=== PATIENT | female | born 1985 | race Caucasian/White ===

== ENCOUNTER 2018-12-17 19:19 | Emergency (ER) | payer BC ==
[~2018-12-17] VITALS: Ht 157.5 cm; Wt 55.8 kg
[2018-12-17 19:25] VITALS: BP 140/84
--- NOTE | 2018-12-17 19:25 | NUR ---
TO BED # 11 AMBULATORY
--- NOTE | 2018-12-17 19:45 | NUR ---
33 YO F BIB SELF AND PRESENTS TO ED C/O 02/23 LEFT LEG PAIN THAT COMES AND GOES X 3 HOURS FROM A BUG BITE THAT OCCURED X 1 WEEK AGO. SITE IS SCABBED; PT STATES SHE HAS BEEN SCRATCHING AT IT. ERYTHEMA AND MILD SWELLING NOTED. PT DENIES FEVER, N/V/D. PT STATES SHE TOOK TYLENOL 1000MG ABOUT 1 HOUR AGO. PT ALSO STATES SHE SMOKED MARIJUANA TO ALLEVIATE PAIN. PT IS ALSO . -- PT AWAKE, ALERT, TEARFUL, CRYING FROM PAIN. ANSWERS QUESTIONS APPROPRIATELY. -- SKIN PINK, WARM, DRY. BREATHING EVEN, UNLABORED. PMH-- GAVE IN AUGUST RX-- VITAMINS
[2018-12-17] MEDS ORDERED: KETOROLAC 60 MG/2 ML VIAL IM ONE (19:50)
--- NOTE | 2018-12-17 20:00 | NUR ---
MEDICATION GIVEN ORDERED. EDUCATION PROVIDED ON RISKS/BENEFITS. PT TOLERATED WELL.
--- NOTE | 2018-12-17 21:00 | NUR ---
Patient discharged with v/s stable. Written and verbal after care instructions given and explained. Patient alert, oriented and verbalized understanding of instructions. Ambulatory with steady gait. All questions addressed prior to discharge. ID band removed. Patient advised to follow up with PMD. Rx keflex and prednisone given. Patient educated on indication of medication including possible reaction and side effects. Opportunity to ask questions provided and answered.
== END 2018-12-17 21:00 | disposition home or self-care (01) ==
LOC: MED 19:19
DX: L03.116 Cellulitis of left lower limb (principal); F12.10 Cannabis abuse, uncomplicated
CPT/HCPCS: 96372; 99283; J1885

== ENCOUNTER 2022-12-21 05:10 | Emergency (ER) | payer BC, OTHER ==
[~2022-12-21] VITALS: Ht 160 cm; Wt 54.4 kg
[2022-12-21 05:19] VITALS: BP 153/103; PULSE 85; RESP 18; TEMP 97.9; O2SAT 98
--- NOTE | 2022-12-21 05:22 | NUR ---
PT TAKEN TO BED 8
--- NOTE | 2022-12-21 05:30 | NUR ---
at the bedside
--- NOTE | 2022-12-21 05:32 | NUR ---
Dr nicolas is at the bedside
[2022-12-21] MEDS ORDERED: KETOROLAC 15 MG/ML VIAL IVP ONE (05:35)
[2022-12-21] MEDS ORDERED: ONDANSETRON 4 MG/2 ML VIAL IVP ONE (05:35)
--- NOTE | 2022-12-21 05:35 | NUR ---
blood sent the the lobby
--- NOTE | 2022-12-21 05:39 | NUR ---
pt was taken to ct
[2022-12-21 05:40] LABS: BASOPHILS # (AUTO) 0.1 K/uL (0.00-0.22); BASOPHILS % (AUTO) 0.5 % (0.0-2.0); EOSINOPHILS # (AUTO) 0.6 K/uL (0-0.4); EOSINOPHILS % (AUTO) 6.3 % (0.0-4.0); HEMATOCRIT 37.6 % (36-48); HEMOGLOBIN 12.6 g/dL (12.0-16.0); LYMPHOCYTES # (AUTO) 3.9 K/uL (2.5-16.5); LYMPHOCYTES % (AUTO) 40.4 % (20.5-51.1); MEAN CORPUSCULAR HEMOGLOBIN 31 pg (27-31); MEAN CORPUSCULAR HGB CONC 33 g/dL (33-37); MEAN CORPUSCULAR VOLUME 91.7 fL (80-94); MONOCYTES # (AUTO) 0.7 K/uL (0.8-1.0); NEUTROPHILS # (AUTO) 4.4 K/uL (1.8-7.7); NEUTROPHILS % (AUTO) 45.8 % (42.2-75.2); PLATELET COUNT (AUTO) 365 K/uL (140-450); RED CELL DISTRIBUTION WIDTH 12.7 % (11.6-13.7); WHITE BLOOD COUNT (AUTO) 9.6 K/uL (4.8-10.8)
--- NOTE | 2022-12-21 05:54 | NUR ---
PT RETURN FROM CT
[2022-12-21 06:10] LABS: ALBUMIN 3.9 g/dL (3.4-5.0); ANION GAP 14.1 (8-16); CARBON DIOXIDE 24.4 mmol/L (21-32); CREATININE 0.7 mg/dL (0.6-1.3); POTASSIUM 3.5 mmol/L (3.5-5.1); TOTAL BILIRUBIN 0.2 mg/dL (0.0-1.0)
[2022-12-21] MEDS ORDERED: MORPHINE SULFATE 4 MG/ML SYR IVP ONE (06:25)
[2022-12-21 06:30] LABS: APPEARANCE,URINE CLEAR (CLEAR); BILIRUBIN,URINE NEGATIVE (NEGATIVE); BLOOD, URINE 3+ (NEGATIVE); COLOR,URINE YELLOW (YELLOW); LEUKOCYTE ESTERASE ,URINE TRACE (NEGATIVE); NITRITE, URINE NEGATIVE (NEGATIVE); UGLUCOSE NEGATIVE (NEGATIVE)
[2022-12-21 06:41] LABS: RBC,URINE 11-20 (MOD) /HPF (0-5)
[2022-12-21 06:42] LABS: CALCIUM OXALATE CRYSTALS,UR 0-10 /HPF (None Seen)
--- NOTE | 2022-12-21 07:30 | NUR ---
REPORT RECEIVED FROM CLARISSE GASTELUM. ASSUMED CARE AT THIS TIME
[2022-12-21 07:50] VITALS: O2SAT 99
--- NOTE | 2022-12-21 07:50 | NUR ---
pt w/ increased pain onset. made aware
[2022-12-21] MEDS ORDERED: IBUP-2213 PO (08:10)
[2022-12-21] MEDS ORDERED: TAMS0.4C96 PO (08:10)
[2022-12-21] MEDS ORDERED: ACET-5629 PO (08:10)
[2022-12-21] MEDS ORDERED: oxyCODONE/APAP 5/325 MG 1 TAB TAB PO ONE (08:15)
--- NOTE | 2022-12-21 09:07 | NUR ---
IV removed, catheter intact and site benign. Applied folded 4x4 gauze and tape to stop bleeding.
--- NOTE | 2022-12-21 09:21 | NUR ---
The patient's care was reviewed and supervised by PAOLA SNOWDEN RN.
[2022-12-21 09:25] VITALS: BP 111/72; PULSE 77; RESP 18; TEMP 97.9; O2SAT 99
--- NOTE | 2022-12-21 09:25 | NUR ---
Patient discharged with v/s stable. Written and verbal after care instructions FOR [facility] given and explained. Patient alert, oriented and verbalized understanding of instructions. Ambulatory with steady gait. All questions addressed prior to discharge. ID band removed. Patient advised to follow up with PMD. Rx of OXYCODONE, IBUPROFEN AND FLOMAX given. Opportunity to ask questions provided and answered. COPY OF LABS AND CT PROVIDED
== END 2022-12-21 09:21 | disposition home or self-care (01) ==
LOC: MED 05:10
DX: N20.0 Calculus of kidney (principal); R11.0 Nausea
CPT/HCPCS: 36415; 74176; 80053; 81001; 81025; 83690; 85025; 96374; 96375; 99285; J1885; J2270; J2405